=== PATIENT | female | born 1935 | race Caucasian/White ===

== ENCOUNTER 2018-05-28 02:30 | Inpatient (IN) | payer OTHER, MEDICARE ==
[2018-05-28 03:40] LABS: Allen Test ACCEPTAB; Arterial Base Excess 3.6 mmol/L (-3.0-3); Arterial Blood Gas Oxygen Sat 93.9 mmHG (95.0-100.0); Arterial COHb 0.8 % (0.0-3.0); Arterial Fraction of Oxyhgb 93.1 % (93.0-99.0); Arterial HCO3 27.2 mmol/L (22.0-26.0); Arterial MetHb 0.1 % (0.0-1.5); Arterial Total Hemglobin 8.4 g/dl (12.0-18.0); Arterial pCO2 37.1 mmhg (35-45); MODE VENT - AC; Site Right Radial
[2018-05-28] MEDS ORDERED: MAGNESIUM OXIDE 400 MG TAB GTB (04:00)
[2018-05-28] MEDS ORDERED: MAGNESIUM HYDROXIDE 30ML CUP PEG (04:00)
[2018-05-28] MEDS ORDERED: ACETAMINOPHEN 650MG/20.3ML CUP GTB (04:00)
[2018-05-28] MEDS ORDERED: ONDANSETRON 4 MG INJ IV (04:00)
[2018-05-28] MEDS ORDERED: DEXTROSE 50% 50 ML SYRINGE IV ×4 (04:30→05:00)
[2018-05-28 05:00] LABS: ADD MAN DIFF? NO
[2018-05-28] MEDS ORDERED: GLUCAGON 1 MG INJ IM (05:00)
[2018-05-28] MEDS ORDERED: GLUCOSE GEL 15 GRAM TUBE PO ×2 (05:00)
[2018-05-28] MEDS ORDERED: GLUCOSE GEL 15 GRAM TUBE BUCCAL (05:00)
[2018-05-28 05:03] LABS: BASOPHILS % 0.2 % (0.0-2.0); EOSINOPHILS # 0.8 10^3/ul (0.0-0.5); HEMATOCRIT 24.1 % (37.0-47.0); HEMOGLOBIN 7.4 g/dl (12.0-16.0); LYMPHOCYTES # 0.8 10^3/ul (0.8-2.9); LYMPHOCYTES % 9.3 % (15.0-51.0); MEAN CORPUSCULAR HEMOGLOBIN 29.6 pg (29.0-33.0); MEAN CORPUSCULAR HGB CONC 30.7 g/dl (32.0-37.0); MEAN CORPUSCULAR VOLUME 96.4 fl (82.0-101.0); MEAN PLATELET VOLUME 10.9 fl (7.4-10.4); MONOCYTE # 0.5 10^3/ul (0.3-0.9); MONOCYTES % 5.3 % (0.0-11.0); NEUTROPHIL # 6.4 10^3/ul (1.6-7.5); NEUTROPHILS % 75.3 % (39.0-77.0); PLATELET COUNT 175 10^3/UL (140-415); RED CELL DISTRIBUTION WIDTH 14.8 % (11.5-14.5)
[2018-05-28 05:03] LABS: WHITE BLOOD COUNT 8.5 10^3/ul (4.8-10.8)
[2018-05-28 05:26] LABS: ANION GAP 10 (8-16); BLOOD UREA NITROGEN 64 mg/dl (7-20); CALCIUM 8.2 mg/dl (8.4-10.2); CARBON DIOXIDE 31 mmol/L (21-31); CHLORIDE 105 mmol/L (97-110); CREATININE 1.99 mg/dl (0.44-1.00); GLUCOSE 132 mg/dl (70-220); MAGNESIUM 3.3 mg/dl (1.7-2.5); PHOSPHORUS 2.8 mg/dl (2.5-4.9); POTASSIUM 3.6 mmol/L (3.5-5.1); SODIUM 142 mmol/L (135-144)
[2018-05-28] MEDS: PANTOPRAZOLE 40 MG INJ IV (06:24)
[2018-05-28] MEDS: METOCLOPRAMIDE 10 MG INJ IV ×3 (06:24→17:09)
[2018-05-28] MEDS: DEXAMETHASONE 4 MG/ML 1 ML INJ IV ×3 (06:24→21:51)
[2018-05-28] MEDS: INSULIN ASPART [NOVOLOG] 3 ML PEN SC ×4 (07:35→20:43)
[2018-05-28] MEDS: ALBUTEROL/IPRATROPIUM (NEB) 3 ML AMP HHN ×2 (08:00→14:15)
[2018-05-28] MEDS: MICONAZOLE 2% 30 GM CR TOP ×2 (08:10→20:50)
[2018-05-28] MEDS: METOPROLOL 25 MG TAB GTB ×2 (08:10→20:39)
[2018-05-28] MEDS: POLYETHYLENE GLYCOL 17 GM PACKET GTB (08:10)
[2018-05-28] MEDS: DOCUSATE SODIUM 10 MG/ML (10ML CUP) GTB (08:10)
[2018-05-28] MEDS: BALSAM PERU/CASTOR OIL 60 GM TUBE TOP ×2 (08:10→20:44)
[2018-05-28] MEDS: SENNA TAB PO ×2 (08:11→20:37)
[2018-05-28] MEDS: ASCORBIC ACID 500 MG TAB GTB (08:11)
[2018-05-28] MEDS ORDERED: ASPIRIN 325 MG TAB GTB (09:00)
[2018-05-28 09:19] LABS: INR 1.01; PROTIME 13.4 Sec (11.9-14.9)
[2018-05-28 09:24] LABS: ALANINE AMINOTRANSFERASE 13 IU/L (13-69); ALBUMIN 2.6 g/dl (3.3-4.9); ALKALINE PHOSPHATASE 103 IU/L (42-121); ASPARTATE AMINO TRANSFERASE 25 IU/L (15-46); BILIRUBIN,INDIRECT 0.4 mg/dl (0-1.1); BILIRUBIN,TOTAL 0.4 mg/dl (0.2-1.3); TOTAL PROTEIN 5.7 g/dl (6.1-8.1)
[2018-05-28 09:48] LABS: ADD UMIC YES; UR ASCORBIC ACID NEGATIVE (NEGATIVE); UR BACTERIA FEW /HPF (NONE SEEN); UR BILIRUBIN (Dip) NEGATIVE (NEGATIVE); UR BLOOD (Dip) 2+ mg/dL (NEGATIVE); UR BUDDING YEAST MANY /HPF (NONE SEEN); UR CLARITY SLIGHTLY CLOUDY (CLEAR); UR COLOR YELLOW (YELLOW); UR GLUCOSE (Dip) NEGATIVE (NEGATIVE); UR KETONES (Dip) NEGATIVE (NEGATIVE); UR LEUKOCYTE ESTERASE (Dip) 3+ Leu/ul (NEGATIVE); UR NITRITE (Dip) NEGATIVE (NEGATIVE); UR NONSQUAMOUS EPITHELIAL CELL 2 /HPF (NONE SEEN); UR RBC 43 /HPF (0-5); UR SPECIFIC GRAVITY (Dip) 1.015 (1.003-1.030); UR SQUAMOUS EPITHELIAL CELL FEW /HPF (FEW); UR TOTAL PROTEIN (Dip) 2+ mg/dl (NEGATIVE); UR UROBILINOGEN (Dip) NEGATIVE (NEGATIVE); UR WBC 41 /HPF (0-5)
[2018-05-28 10:01] LABS: CREATININE,URINE RANDOM 27.43 mg/dl (20-320)
[2018-05-28 10:01] LABS: SODIUM,URINE RANDOM 76 mmol/L (30-90)
[2018-05-28] MEDS: ATORVASTATIN 20 MG TAB GTB (20:38)
[2018-05-28] MEDS: INSULIN DETEMIR [LEVEMIR] (100 UNITS/ML) SYG SC (20:39)
[2018-05-28] MEDS: ALBUTEROL HFA 8 GM INHALER INH (21:11)
[2018-05-28] MEDS: IPRATROPIUM (HFA) 12.9 GM INHALER INH (21:11)
[2018-05-29] MEDS: METOCLOPRAMIDE 10 MG INJ IV ×4 (00:10→17:46)
[2018-05-29] MEDS: ACCU-CHEK XX ×2 (02:11→23:47)
[2018-05-29] MEDS: PANTOPRAZOLE 40 MG INJ IV (05:17)
[2018-05-29 05:22] LABS: ADD MAN DIFF? NO
[2018-05-29 05:24] LABS: ABNORMAL IP MESSAGE 1; HEMATOCRIT 24.2 % (37.0-47.0); HEMOGLOBIN 7.5 g/dl (12.0-16.0); LYMPHOCYTES # 0.5 10^3/ul (0.8-2.9); MEAN CORPUSCULAR HEMOGLOBIN 30.2 pg (29.0-33.0); MEAN CORPUSCULAR VOLUME 97.6 fl (82.0-101.0); MEAN PLATELET VOLUME 11.6 fl (7.4-10.4); MONOCYTE # 0.1 10^3/ul (0.3-0.9); MONOCYTES % 1.4 % (0.0-11.0); NEUTROPHIL # 6.4 10^3/ul (1.6-7.5); NEUTROPHILS % 90.6 % (39.0-77.0); PLATELET COUNT 208 10^3/UL (140-415); RED BLOOD COUNT 2.48 10^6/ul (4.20-5.40); RED CELL DISTRIBUTION WIDTH 14.7 % (11.5-14.5)
[2018-05-29] MEDS: DEXAMETHASONE 4 MG/ML 1 ML INJ IV (05:30)
[2018-05-29 05:42] LABS: ALANINE AMINOTRANSFERASE 18 IU/L (13-69); ALBUMIN 2.7 g/dl (3.3-4.9); ALBUMIN/GLOBULIN RATIO 0.72; ALKALINE PHOSPHATASE 108 IU/L (42-121); ANION GAP 12 (8-16); ASPARTATE AMINO TRANSFERASE 25 IU/L (15-46); BILIRUBIN,INDIRECT 0.2 mg/dl (0-1.1); BILIRUBIN,TOTAL 0.2 mg/dl (0.2-1.3); BLOOD UREA NITROGEN 73 mg/dl (7-20); CALCIUM 8.1 mg/dl (8.4-10.2); CARBON DIOXIDE 27 mmol/L (21-31); CHLORIDE 104 mmol/L (97-110); CHOL/HDL RATIO 3.8 RATIO; CHOLESTEROL 100 mg/dl (100-200); CREATININE 2.08 mg/dl (0.44-1.00); GLUCOSE 229 mg/dl (70-220); HDL CHOLESTEROL 26 mg/dl (33-92); LDL CHOLESTEROL,CALCULATED 60 mg/dl; POTASSIUM 4.2 mmol/L (3.5-5.1); SODIUM 139 mmol/L (135-144); TOTAL PROTEIN 6.4 g/dl (6.1-8.1); TRIGLYCERIDES 69 mg/dl (0-149)
[2018-05-29 05:49] LABS: B-TYPE NATRIURETIC PEPTIDE 26700 PG/ML (0-450)
[2018-05-29 05:51] LABS: MAGNESIUM 3.3 mg/dl (1.7-2.5)
[2018-05-29 05:51] LABS: PHOSPHORUS 3.9 mg/dl (2.5-4.9)
[2018-05-29 05:56] LABS: FREE T4 (FREE THYROXINE) 0.86 ng/dl (0.85-1.93)
[2018-05-29 05:57] LABS: POSITIVE DIFF @See below
[2018-05-29 06:11] LABS: THYROID STIMULATING HORMONE 0.428 MIU/L (0.465-4.680)
[2018-05-29] MEDS: ALBUTEROL HFA 8 GM INHALER INH ×3 (08:02→19:58)
[2018-05-29] MEDS: IPRATROPIUM (HFA) 12.9 GM INHALER INH ×3 (08:03→19:58)
[2018-05-29] MEDS: INSULIN ASPART [NOVOLOG] 3 ML PEN SC ×4 (08:20→20:35)
[2018-05-29] MEDS: BALSAM PERU/CASTOR OIL 60 GM TUBE TOP ×2 (08:21→20:36)
[2018-05-29] MEDS: MICONAZOLE 2% 30 GM CR TOP ×2 (08:21→20:36)
[2018-05-29] MEDS: METOPROLOL 50 MG TAB GTB ×2 (09:01→20:32)
[2018-05-29] MEDS: SENNA TAB PO ×2 (09:01→20:33)
[2018-05-29] MEDS: ASCORBIC ACID 500 MG TAB GTB (09:01)
[2018-05-29] MEDS: DOCUSATE SODIUM 10 MG/ML (10ML CUP) GTB (09:02)
[2018-05-29] MEDS: AMLODIPINE 10 MG TAB GTB (09:02)
[2018-05-29] MEDS: POLYETHYLENE GLYCOL 17 GM PACKET GTB (09:02)
[2018-05-29] MEDS ORDERED: hydrALAzine 20 MG INJ IV (11:00)
[2018-05-29 17:46] LABS: CREATININE, RANDOM URINE 34 mg/dL (20-320); MICROALBUMIN 126.6 mg/dL; MICROALBUMIN/CREATININE RATIO 3724 (<30)
[2018-05-29] MEDS: ATORVASTATIN 20 MG TAB GTB (20:31)
[2018-05-29] MEDS: INSULIN DETEMIR [LEVEMIR] (100 UNITS/ML) SYG SC (20:34)
[2018-05-29] MEDS ORDERED: INSULIN ASPART [NOVOLOG] 3 ML PEN SC (21:00)
[2018-05-30] MEDS: METOCLOPRAMIDE 10 MG INJ IV ×3 (01:33→14:38)
[2018-05-30] MEDS: INSULIN ASPART [NOVOLOG] 3 ML PEN SC ×4 (01:36→13:51)
[2018-05-30] MEDS: PANTOPRAZOLE 40 MG INJ IV (05:07)
[2018-05-30 06:10] LABS: ADD MAN DIFF? NO
[2018-05-30 06:20] LABS: BASOPHILS % 0.1 % (0.0-2.0); EOSINOPHILS # 0.2 10^3/ul (0.0-0.5); EOSINOPHILS % 1.9 % (0.0-7.0); HEMATOCRIT 24.3 % (37.0-47.0); HEMOGLOBIN 7.4 g/dl (12.0-16.0); LYMPHOCYTES % 10.9 % (15.0-51.0); MEAN CORPUSCULAR HEMOGLOBIN 29.5 pg (29.0-33.0); MEAN CORPUSCULAR HGB CONC 30.5 g/dl (32.0-37.0); MEAN CORPUSCULAR VOLUME 96.8 fl (82.0-101.0); MEAN PLATELET VOLUME 11.3 fl (7.4-10.4); MONOCYTE # 0.7 10^3/ul (0.3-0.9); NEUTROPHIL # 7.3 10^3/ul (1.6-7.5); NEUTROPHILS % 79.5 % (39.0-77.0); PLATELET COUNT 236 10^3/UL (140-415); RED BLOOD COUNT 2.51 10^6/ul (4.20-5.40); RED CELL DISTRIBUTION WIDTH 14.8 % (11.5-14.5)
[2018-05-30 06:20] LABS: WHITE BLOOD COUNT 9.2 10^3/ul (4.8-10.8)
[2018-05-30 06:56] LABS: ANION GAP 10 (8-16); BLOOD UREA NITROGEN 81 mg/dl (7-20); CALCIUM 8.2 mg/dl (8.4-10.2); CARBON DIOXIDE 29 mmol/L (21-31); CHLORIDE 105 mmol/L (97-110); CREATININE 2.34 mg/dl (0.44-1.00); GLUCOSE 191 mg/dl (70-220); MAGNESIUM 3.4 mg/dl (1.7-2.5); PHOSPHORUS 3.5 mg/dl (2.5-4.9); POTASSIUM 3.6 mmol/L (3.5-5.1); SODIUM 140 mmol/L (135-144)
[2018-05-30] MEDS: ALBUTEROL HFA 8 GM INHALER INH ×2 (08:03→13:25)
[2018-05-30] MEDS: IPRATROPIUM (HFA) 12.9 GM INHALER INH ×2 (08:03→13:24)
[2018-05-30] MEDS: DOCUSATE SODIUM 10 MG/ML (10ML CUP) GTB (09:04)
[2018-05-30] MEDS: SENNA TAB PO (09:05)
[2018-05-30] MEDS: METOPROLOL 50 MG TAB GTB (09:05)
[2018-05-30] MEDS: AMLODIPINE 10 MG TAB GTB (09:06)
[2018-05-30] MEDS: ASCORBIC ACID 500 MG TAB GTB (09:06)
[2018-05-30] MEDS: MICONAZOLE 2% 30 GM CR TOP (09:06)
[2018-05-30] MEDS: POLYETHYLENE GLYCOL 17 GM PACKET GTB (09:06)
[2018-05-30] MEDS: BALSAM PERU/CASTOR OIL 60 GM TUBE TOP (09:07)
== END 2018-05-30 16:59 | disposition other institution (70) | DRG 64 ==
LOC: ICU 02:30 → 6WM 05-29 22:50
PROC: 5A1945Z Respiratory Ventilation, 24-96 Consecutive Hours (ICD-10-PCS; principal; 2018-05-28)
DX: I63.8 Other cerebral infarction (principal); G93.49 Other encephalopathy; N17.9 Acute kidney failure, unspecified; N18.4 Chronic kidney disease, stage 4 (severe); Z99.11 Dependence on respirator [ventilator] status; I13.0 Hypertensive heart and chronic kidney disease with heart failure and stage 1 through stage 4 chronic kidney disease, or unspecified chronic kidney disease; J96.12 Chronic respiratory failure with hypercapnia; J96.11 Chronic respiratory failure with hypoxia; I50.9 Heart failure, unspecified; E11.22 Type 2 diabetes mellitus with diabetic chronic kidney disease; I25.10 Atherosclerotic heart disease of native coronary artery without angina pectoris; E78.5 Hyperlipidemia, unspecified; Z85.528 Personal history of other malignant neoplasm of kidney; R13.10 Dysphagia, unspecified; Z93.1 Gastrostomy status; D64.9 Anemia, unspecified; E83.89 Other disorders of mineral metabolism; E83.41 Hypermagnesemia; Z93.0 Tracheostomy status
CPT/HCPCS: 36600; 70551; 74018; 80048; 80053; 80061; 80076; 81001; 81003; 82043; 82803; 82962; 83735; 83880; 84100; 84155; 84300; 84439; 84443; 85025; 85610; 87081; 93005; 93306; 94002; 94003; 94640

== ENCOUNTER → 2018-06-24 | Day surgery (SDC) | payer OTHER ==
[~2018-06-24] MED LIST: HEPARIN 1000 UNITS/ML 10 ML INJ; HEPARIN 1000 UNITS/NS (A-LINE) 1,000 ML; IODIXANOL LOCM 50 ML BTL; LIDOCAINE 1% (MDV) 20 ML INJ
== END | disposition home or self-care (01) ==
LOC: CCL 16:00
DX: I12.0 Hypertensive chronic kidney disease with stage 5 chronic kidney disease or end stage renal disease (principal); N18.6 End stage renal disease
CPT/HCPCS: 36561; 94002